=== PATIENT | female | born 1940 | race Caucasian/White ===

== ENCOUNTER 2017-10-14 12:05 | Emergency (ER) | payer OTHER ==
[2017-10-14 12:52] LABS: PLATELET COUNT 213 10^3/uL (150-400)
--- NOTE | 2017-10-14 14:42 | EDPHY ---
H & P Stated Complaint: A-fib Time Seen by Provider: 10/14/17 12:18 HPI/ROS: CHIEF COMPLAINT: Rapid heart rate HISTORY OF PRESENT ILLNESS: This is a 77-year-old female with no known medical history who presents with a rapid irregular heart rate. She believes that this began Thursday evening, four days ago. She has had similar episodes in the past , maybe eleven all total over the past few years. These episodes usually last two to four hours and resolve without treatment. She has not seen a doctor for this and does not have a PCP. She states that her heart rate usually slows down when she rests in a recliner and drinks a cup of tea. However, those measure have not worked with this episode. She denies feeling lightheaded or dizzy and does not have chest pain or shortness of breath. REVIEW OF SYSTEMS: A ten system review of systems was performed and is negative with the exception of the items mentioned in the HPI. Past medical history: ? paroxysmal atrial fibrillation Past surgical history: Cataract surgery Social history: She is retired, worked as a legal counsel. No tobacco or alcohol use. Lives alone. General Appearance: Alert. Vital signs reviewed. BP 154/108, HR 140-150. Eyes: Pupils equal and round, no conjunctival injection, no discharge. Anicteric. ENT, Mouth: Mucous membranes are moist, no oropharyngeal erythema or edema. Neck: No lymphadenopathy, supple. Trachea midline. Respiratory: Lungs are clear to auscultation; no wheezes, rales, or rhonchi. Cardiovascular: Regular rate and rhythm; no murmur, rub, or gallop. Gastrointestinal: Abdomen is soft and nontender, no masses or organomegaly, bowel sounds normal. Skin: Warm and dry, no rashes on exposed skin, normal color. Back: Nontender to palpation over the thoracolumbar spine. No CVAT. Extremities: No lower extremity edema, no calf tenderness or swelling. Neurological: Alert and oriented. Moving all four extremities easily and equally. PERRL. EOMI. Facial expressions symmetric. Tongue midline. Gait normal. Psychiatric: Normal affect. - Medical/Surgical History Hx Asthma: No Hx Chronic Respiratory Disease: No Hx Diabetes: No Hx Cardiac Disease: No Hx Renal Disease: No Hx Cirrhosis: No Hx Alcoholism: No Hx HIV/AIDS: No Hx Splenectomy or Spleen Trauma: No Other PMH: A-fib, cataract surgery - Social History Smoking Status: Never smoked Constitutional: Initial Vital Signs Temperature (C) 36.7 C 10/14/17 12:07 Heart Rate 149 H 10/14/17 12:07 Respiratory Rate 18 10/14/17 12:07 Blood Pressure 154/108 H 10/14/17 12:07 O2 Sat (%) 97 10/14/17 12:07 O2 Delivery Mode Room Air Allergies/Adverse Reactions: No Allergies [NKDA] Allergy (Verified 10/14/17 12:06) Home Medications: Medication Instructions Recorded NK [No Known Home Meds] 10/14/17 Apixaban [Eliquis] 5 mg PO BID #60 tab 10/16/17 Metoprolol Tartrate [Lopressor 25 12.5 mg PO BID #60 tab 10/16/17 mg (*)] Medical Decision Making - Diagnostics EKG Interpretation: 12 lead EKG is interpreted in [place] by emergency department physician. It showed atrial fibrillation with rapid ventricular response. ED Course/Re-evaluation: This is a 77-year-old female who presented with atrial fibrillation and rapid ventricular response. She denies chest pain, shortness of breath, dizziness. Based upon the history that she provides I suspect that she has paroxysmal atrial fibrillation, however, this most recent episode appears to have been present for the past 4 days. [id number] Vasc score is 3. I spoke with her at great length, spending at least a half an hour in discussion with her. She would not allow me to give her any medication. I strongly urged her to except medication--I would of started with intravenous diltiazem to slow her rate--and to remain in the hospital. She adamantly refused to do either of these. She continued in AFib RVR throughout her stay in the department. We did try some noninvasive maneuvers including Valsalva and carotid massage. She states that in the past she has been able to slow her heart down by resting in a reclining chair and drinking tea. I allowed her to rest in the room with her hips and knees flexed but this did not result in conversion of her AFib to a sinus rhythm. She is highly educated, worked as a legal counsel, and is capable of making her own medical decisions. I explained to her the risks of remaining in rapid atrial fibrillation with these including stroke, heart attack, and . I explained the benefits of treatment and I also reviewed some of the risks of the medications that might be used in her treatment. She expressed understanding of these risks and benefits and she asked intelligent questions about the various treatments and medications. She has read about atrial fibrillation. Nevertheless, she continued to refuse any treatment. When asked her why she had come to the emergency room she stated that she wanted to arrange an appointment with a thread weaver. I spoke with Dr. Conor Saenz, the thread weaver clinical application consultant, and he assures me that she can be seen in the office this week. She has been given Dr. Saenz's phone number and is urged to call his office when she leaves the emergency department. She signed a form stating that she was leaving against my medical advice. I explained to her that she is welcome to return to the emergency department at any time should she change her mind about receiving treatment. Differential Diagnosis: I have considered a differential diagnosis of atrial fibrillation that includes but is not limited to myocardial ischemia/coronary artery disease, sick sinus syndrome, hypertension, lung disease, hyperthyroidism, sleep apnea, and age. - Data Points Laboratory Results: Laboratory Results 10/14/17 12:22 10/14/17 12:22 Point of Care Test Results: Chemistry 10/14/17 12:29 POC Troponin I 0.00 ng/mL ng/mL (0.00-0.08) Departure - Departure Disposition: Against Medical Advice Clinical Impression: Atrial fibrillation Qualifiers: Atrial fibrillation type: paroxysmal Qualified Code(s): I48.0 - Paroxysmal atrial fibrillation Condition: Fair Instructions: A-fib (Atrial Fibrillation) (ED), Hyponatremia (ED) Additional Instructions: As you know, I strongly recommend that you stay in the hospital for treatment of your rapid atrial fibrillation. As you know, you are at risk for stroke or heart attack right now. I would give you intravenous diltiazem to slow down your heart rate. If you stayed in the hospital we could complete a full evaluation, including all of the tests that the thread weaver will want when he sees you in his clinic. You are welcome to return to the emergency room at any time if you change your mind about being admitted to the hospital. I think that you should drink less water than you have been drinking. Your sodium is too low. I am referring you to Dr. Conor Saenz. You should call his office today and request an appointment later this week. Let the office staff know that you have been in the emergency department. Tell them that the emergency department physician has spoken with Dr. Saenz. You can also request an appointment with Dr. Nilay Ladd. I suggest that you take the earliest available appointment. I am referring you to Dr. Dewayne Wilson for primary care. Referrals: Tal Saenz MD [Medical Doctor] - As per Instructions Dewayne Wilson DO [Doctor of Osteopathy] - As per Instructions
[2017-10-14 15:00] VITALS: BP 119/70
--- NOTE | 2017-10-14 15:36 | CPEKG ---
Test Reason : OPEN Blood Pressure : / mmHG Vent. Rate : 145 BPM Atrial Rate : 154 BPM P-R Int : 120 ms QRS Dur : 074 ms QT Int : 272 ms P-R-T Axes : 137 084 -41 degrees QTc Int : 423 ms Atrial fibrillation with rapid V-rate Borderline right axis deviation Repolarization abnormality, prob rate related Confirmed by Jackie Keane ([id number]) on 10/14/2017 3:36:03 PM Referred By: Confirmed By:Jackie Keane
== END 2017-10-14 15:00 | disposition home or self-care (01) ==
DX: I48.0 Paroxysmal atrial fibrillation (principal)
CPT/HCPCS: 84484-PO

== ENCOUNTER 2017-10-16 06:38 | Day surgery (SDC) | payer OTHER ==
[2017-10-16] MEDS ORDERED: MIDAZOLAM 2 MG/2 ML VIAL IVP ONE (06:41)
[2017-10-16] MEDS ORDERED: fentaNYL 100 MCG/2 ML INJ IVP ONE (06:41)
[2017-10-16] MEDS ORDERED: NS 500 ML IV ONE (06:41)
[2017-10-16] MEDS ORDERED: ATROPINE SULFATE 1 MG/10 ML SYR IVP ONE (06:41)
[2017-10-16] MEDS ORDERED: BENZOCAINE UNIT DOSE SPRAY HURRICAINE MM ONE (06:41)
[2017-10-16 07:40] LABS: INR 1.32 (0.83-1.16); PROTIME(PATIENT) 16.6 SEC (12.0-15.0)
[2017-10-16] MEDS ORDERED: PROPOFOL 200 MG/20 ML VIAL ONE (08:02)
--- NOTE | 2017-10-16 08:04 | PDGENHP ---
History & Physical Chief Complaint: Afib with RVR History of Present Illness: 77 year old female with no significant past medical history who presents with new onset Afib with RVR. Here for JESSICA/DCCV Relevant Physical Exam: Awake, Alert, Appropriate\. NAD. Irregularly irreg. Ctab
[2017-10-16] MEDS ORDERED: fentaNYL 100 MCG/2 ML INJ IVP PRN (08:05)
[2017-10-16] MEDS ORDERED: PROMETHAZINE HCL 25 MG/ML INJ IVP PRN (08:05)
[2017-10-16] MEDS ORDERED: ACETAMINOPHEN 500 MG TAB PO PRN (08:05)
[2017-10-16] MEDS ORDERED: HYDROCODONE/APAP 5/325 TAB PO PRN (08:05)
[2017-10-16] MEDS ORDERED: ONDANSETRON 4 MG/2 ML VIAL IVP PRN (08:05)
[2017-10-16] MEDS ORDERED: LR 500 ML IV PRN (08:05)
[2017-10-16] MEDS ORDERED: DEXAMETHASONE 4 MG/ML VIAL IVP PRN (08:05)
[2017-10-16] MEDS ORDERED: NALOXONE HCL 0.4 MG/ML INJ IVP PRN (08:05)
--- NOTE | 2017-10-16 08:05 | PDANEPAE ---
ANE Past Medical History - Cardiovascular History Hx Hypertension: No Hx Arrhythmias: Yes Hx Chest Pain: No Hx Coronary Artery / Peripheral Vascular Disease: No Hx CHF / Valvular Disease: No Hx Palpitations: Yes - Pulmonary History Hx COPD: No Hx Asthma/Reactive Airway Disease: No Hx Oxygen in Use at Home: No Hx Sleep Apnea: No - Endocrine History Hx Diabetes: No Obesity: no ANE Review of Systems Review of Systems: ANE Patient History - Allergies Allergies/Adverse Reactions: No Allergies [NKDA] Allergy (Verified 10/14/17 12:06) - Home Medications Home medications: home medication list seen and reviewed Home Medications: NK [No Known Home Meds] 10/14/17 [Last Taken Unknown] - NPO status NPO Status: no food or drink >8 hours - Anes Hx Anes Hx: no prior problems - Smoking Hx Smoking Status: Never smoked ANE Labs/Vital Signs - Labs Result Diagrams: 10/16/17 07:00 - Vital Signs Height: 165 cm Weight: 52.2 kg ANE Physical Exam - Airway Neck exam: FROM Mallampati Score: Class 2 Mouth exam: normal dental/mouth exam - Pulmonary Pulmonary: no respiratory distress, no rales or rhonchi, clear to auscultation - Cardiovascular Cardiovascular: irregularly irregular, tachycardia - ASA Status ASA Status: III ANE Anesthesia Plan Anesthesia Plan: GA with mask
--- NOTE | 2017-10-16 08:50 | POSTANESTH ---
Post Anesthetic Evaluation Cardiovascular Status: Normal, Stable Respiratory Status: Normal, Stable, Similar to Pre-op Cond. Level of Consciousness/Mental Status: Can Participate in Eval, Alert and Oriented Pain Control: Adequate, Prn Tx Ordered Nausea/Vomiting Control: Adequate, Prn Tx Ordered Complications Possibly Related to Anesthesia: None Noted
[2017-10-16 10:00] VITALS: BP 127/62
--- NOTE | 2017-10-16 10:00 | CPR ---
DATE OF PROCEDURE: 10/16/2017 PROCEDURE PERFORMED: Transesophageal echocardiogram and cardioversion. INDICATION FOR PROCEDURE: Atrial fibrillation with rapid ventricular response. SUMMARY: The patient is a pleasant 77-year-old female who I met in the office yesterday after presen ting to the ER on Saturday October 14, 2017 with atrial fibrillation with rapid ventricular respons e, which had been present for several days prior. She states she had felt similar episodes over appr oximately the last 2 years. She had never been evaluated for this in the past. She has no medicatio ns. She has refused medical therapy for any medical condition to date including macular degeneration , glaucoma and cataracts. She ultimately left the emergency room against medical advice, but agreed to see me in the office yesterday. We had a lengthy discussion regarding atrial fibrillation with ra pid ventricular response. She remained in atrial fibrillation at approximately 145 beats per minute in my office yesterday. Her CHADS-VASc 4 and I have recommended long-term anticoagulation. She was agreeable to initiate Eliquis 5 mg p.o. b.i.d., which is appropriate dose based of her age, weight an d renal function. She took a dose last evening and again took Eliquis again this morning. She was reluctant to start metoprolol in the setting of glaucoma. I did speak with her ophthalmologi st, Dr. Vasu Maldonado from the [facility]. He informed me that she has open-angle glaucoma and that beta blockers would not be contraindicated with her ophthalmological diseases. I have recom mended that she initiate metoprolol tartrate 12.5 mg p.o. b.i.d. PROCEDURE: Patient signed consents for anesthesia, JESSICA and cardioversion. Once consents were signed , patient was sedated with propofol. Once appropriate level of sedation was achieved, JESSICA probe was passed without incident. A bite block was in place. Care was taken to avoid damaging any teeth. Sh e does have a loose tooth. JESSICA probe was passed without incident. There is no evidence of left atri al appendage thrombus or left atrial thrombus. Left ventricular function demonstrated normal EF of 6 0% to 65%. There is mild to moderate aortic insufficiency and mild mitral regurgitation. Please see transesophageal echo report for full details. JESSICA probe was removed without incident. The patient then underwent cardioversion with a single biphasic shock of 150 joules with return to sinus rhythm a t 70 beats per minute. She woke from the procedure well without complications. PLAN: 1. The patient will be started on metoprolol tartrate 12.5 mg p.o. b.i.d. This has been discussed w ith her in detail and I have again re-informed her that I did speak with Dr. Maldonado. 2. Continue Eliquis 5 mg p.o. b.i.d. She was given a prescription for Eliquis yesterday as well as a 1 month free Eliquis card. She is agreeable to remain on Eliquis 5 mg p.o. b.i.d. for at least the next 30 days. She will schedule an appointment with her to see me in the office in the next 2 weeks. /[id number]/MODL
--- NOTE | 2017-10-16 14:17 | CPEKG ---
Test Reason : OPEN Blood Pressure : / mmHG Vent. Rate : 138 BPM Atrial Rate : 163 BPM P-R Int : 150 ms QRS Dur : 078 ms QT Int : 304 ms P-R-T Axes : 000 081 -42 degrees QTc Int : 461 ms Atrial fibrillation Borderline right axis deviation Confirmed by Alonzo Monteiro ([id number]) on 10/16/2017 2:16:33 PM Referred By: Confirmed By:Alonzo Monteiro
--- NOTE | 2017-10-16 14:17 | CPEKG ---
Test Reason : OPEN Blood Pressure : / mmHG Vent. Rate : 075 BPM Atrial Rate : 076 BPM P-R Int : 134 ms QRS Dur : 078 ms QT Int : 390 ms P-R-T Axes : 083 078 030 degrees QTc Int : 436 ms Sinus rhythm Atrial premature complexes Confirmed by Alonzo Monteiro ([id number]) on 10/16/2017 2:16:45 PM Referred By: Confirmed By:Alonzo Monteiro
--- NOTE | 2017-10-16 16:16 | ECHO ---
[email or web address] [address] [address] Main: [phone] Fax: Transesophageal Echocardiography Name: TERRANCE ROGEL MR#: [id number] Study Date: 10/16/2017 Study Time: 08:14 AM Date of : 1940 Age: 77 year(s) Height: ( ) Weight: ( ) BSA: Gender: Female Examination: JESSICA Indication: Pre Cardioversion Image Quality: Contrast: Requested by: Tal Saenz Heart Rate: Rhythm: Atrial fibrillation BP: / Procedure Staff Robotic Machine Tender Production: Artemio Rivera RDCS Reading Physician: Tal Saenz MD Requesting Provider: JESSICA Exam Details Conclusions: Normal global systolic LV function. No regional wall motion abnormality. Normal size right ventricle. Good color flow doppler in the left atrial appendage. No thrombus in left appendage. Measurements: Chambers Valvular Assessment AV/MV Valvular Assessment TV/PV Normal Normal Normal Name Value Range Name Value Range Name Value Range Additional Measurements: Findings: Left Ventricle: Normal global systolic LV function. No regional wall motion abnormality. Right Ventricle: Normal size right ventricle. Normal RV function. Left Atrial Appendage: Good color flow doppler in the left atrial appendage. No thrombus in left appendage. Right Atrium: The right atrium is normal in size. Small left to right shunt across the interatrial septum noted with color flow Doppler. Patient: TERRANCE ROGEL Study Date: 10/16/2017 Page 1 of 2 08:14 AM Mitral Valve: The mitral valve is normal in appearance. Mild mitral valve regurgitation is present. Aortic Valve: The aortic valve is tri-leaflet. The aortic valve is normal in appearance. Mild aortic valve regurgitation is present. Tricuspid Valve: The tricuspid valve is normal in appearance and function. Pulmonic Valve: The pulmonic valve is normal in appearance and function. Aorta: The aorta is normal. Pericardium: No pericardial effusion. Exam Comments: Proceeded with successful elective DC cardioversion.. l1n (No Signature Object) Patient: TERRANCE ROGEL Study Date: 10/16/2017 Page 2 of 2 08:14 AM [id number]
[2017-10-16] MEDS ORDERED: METOPROLOL TARTRATE 25 MG TAB PO SCH (21:00)
== END 2017-10-16 10:00 | disposition home or self-care (01) ==
LOC: FCATH 06:38
PROVIDERS: ATTEND Internal Medicine Cardiovascular Disease
PROC: 5A2204Z Restoration of Cardiac Rhythm, Single (ICD-10-PCS; principal; 2017-10-16)
PROC: B246ZZ4 Ultrasonography of Right and Left Heart, Transesophageal (ICD-10-PCS; principal; 2017-10-16)
DX: I48.91 Unspecified atrial fibrillation (principal); Z79.01 Long term (current) use of anticoagulants; K08.89 Other specified disorders of teeth and supporting structures
CPT/HCPCS: J2704